=== PATIENT | male | born 1955 | race Caucasian/White ===

== ENCOUNTER → 2017-07-04 | Outpatient (CLI) | payer OTHER ==
--- NOTE | 2017-07-04 17:24 | PCVCIMAG ---
APPROVED REPORT Exam: Stress Echocardiogram Indication: CAD , Dyspnea , Hypertension Patient Location: Echo lab Stress Nurse: Roro Bowden RN Status: routine Ht: 5 ft 10 in HR: 109 bpm BP: 134/82 mmHg Rhythm: Sinus Tachycardia Procedure The patient underwent an Exercise Stress Test using the Que Protocol. Blood pressure, heart rate, and EKG were monitored. An Echocardiogram was performed by building maintenance technician in four stages in quad fashion. At peak stress, four selected images were obtained and placed side by side with resting images for comparison. Stress Test Details Stress Test: Exercise stress testing was performed using a Que protocol. HR Resting HR: 109 bpmMax Heart Rate (APMHR): 158 bpm Max HR Achieved: 169 bpmTarget HR (85% APMHR): 134 bpm % of APMHR: 106 Recovery HR: 126 bpm HR response to stress: Normal HR response to stress BP Resting BP: 134/82 mmHg Max BP: 206/94 mmHg Recovery BP: 186/88 mmHg ECG Resting ECG: Sinus Rhythm Stress ECG: Sinus Rhythm ST Change: Non-diagnostic ST changes Arrhythmia: Isolated PVCs Recovery ECG: Sinus Rhythm Recovery ST Change: Non-diagnostic ST changes Recovery Arrhythmia: Isolated PVCs Clinical Reason for Termination: Maximal effort Stress Symptoms: Dyspnea Exercise duration: 7 min 30 sec Highest Stage Achieved: Stage 3: 3.4 mph at 14% grade. Exercise capacity: 10.1 METs Overall Exercise Capacity for Age: Normal Pre-Stress Echo The resting Echocardiogram showed normal left ventricular contractility with an estimated Ejection Fraction of about >55%. Normal wall motion in all segments on baseline images. Post-Stress Echo The stress Echocardiogram showed normal left ventricular contractility with an estimated Ejection Fraction of about 65%. Normal augmentation of wall motion in all segments on post stress images. Clinical No clinical and non-diagnostic ECG evidence for ischemia. Conclusion Clinical Response: Non-ischemic Exercise Capacity: Average Stress ECG Response: Equivocal Stress Echo Images: Non-ischemic The left ventricle is normal in size and wall thickness in both the rest and stress images. Other Information Study Quality: Adequate <Conclusion> The left ventricle is normal in size and wall thickness in both the rest and stress images.
== END | disposition home or self-care (01) ==
LOC: PCVCIMAG 15:39
PROVIDERS: ATTEND Internal Medicine Cardiovascular Disease
DX: I49.3 Ventricular premature depolarization (principal); I25.10 Atherosclerotic heart disease of native coronary artery without angina pectoris; I10 Essential (primary) hypertension; E78.5 Hyperlipidemia, unspecified; R00.0 Tachycardia, unspecified; J45.909 Unspecified asthma, uncomplicated; K21.9 Gastro-esophageal reflux disease without esophagitis; Z90.49 Acquired absence of other specified parts of digestive tract; Z79.82 Long term (current) use of aspirin
CPT/HCPCS: 93325; 93351

== ENCOUNTER → 2019-07-12 | Outpatient (CLI) | payer SELFPAY ==
--- NOTE | 2019-07-12 17:17 | PCVCIMAG ---
APPROVED REPORT Study performed: 07/12/2019 14:55:28 Exam: Stress Echocardiogram Indication: CAD, Cor Ca+ >2000 Patient Location: Echo lab Stress Nurse: Roro Bowden RN Room #: 2 Status: routine Ht: 5 ft 10 in HR: 92 bpm BP: 142/84 mmHg Rhythm: NSR Medical History Medical History: HTN, Hyperlipidemia, CAD non obstructive Cardiac Risk Factors: HTN, Hyperlipidemia, FHX of CAD Previous Cardiac Procedures: Cath only Pretest Chest Pain Characteristics: No chest pain Exercise History: Physically active Procedure The patient underwent an Exercise Stress Test using the Que Protocol. Blood pressure, heart rate, and EKG were monitored. An Echocardiogram was performed by voice intercept technician in four stages in quad fashion. At peak stress, four selected images were obtained and placed side by side with resting images for comparison. Stress Test Details Stress Test: Exercise stress testing was performed using a Que protocol. HR Resting HR: 92 bpmMax Heart Rate (APMHR): 156 bpm Max HR Achieved: 171 bpmTarget HR (85% APMHR): 132 bpm % of APMHR: 109 Recovery HR: 125 bpm HR response to stress: Normal HR response to stress BP Resting BP: 142/84 mmHg Max BP: 164/80 mmHg Recovery BP: 140/80 mmHg BP response to stress: Normal blood pressure response to stress. ECG Resting ECG: Sinus Rhythm, normal EKG Stress ECG: Sinus Rhythm, nonspecific ST-T abnormalities ST Change: Non-ischemic Maximum ST Deviation: -1.8 mm Arrhythmia: PVCs Recovery ECG: Sinus Rhythm, nonspecific ST-T abnormalities Recovery ST Change: Non-ischemic Recovery ST Deviation: -1.6 mm Recovery Arrhythmia: Occ PVCs Clinical Reason for Termination: Maximal effort Stress Symptoms: none Exercise duration: 10 min 04 sec Highest Stage Achieved: Stage 4: 4.2 mph at 16% grade. Exercise capacity: 13.4 METs Overall Exercise Capacity for Age: Good Scale: Active Angina Score: None No complications. Stress ECG Conclusion Bernard Treadmill Score is 19.0 which is Low risk. Pre-Stress Echo The resting Echocardiogram showed normal left ventricular contractility with an estimated Ejection Fraction of about 55-60%. Normal wall motion in all segments on baseline images. Post-Stress Echo The stress Echocardiogram showed normal left ventricular contractility with an estimated Ejection Fraction of about 65-70%. Normal augmentation of wall motion in all segments on post stress images. Clinical No clinical or ECG evidence for ischemia. Conclusion Clinical Response: Non-ischemic Exercise Capacity: Superior Stress ECG Response: Non-ischemic Stress Echo Images: Non-ischemic No clinical, EKG or echocardiographic evidence for ischemia. No echocardiographic evidence for exercise induced ischemia. Normal stress echocardiogram with maximal exercise stress. Normal color doppler. No regurgitation or stenosis present on pulmonic, mitral, and aortic valves. Trace tricuspid regurgitation. <Conclusion> No clinical, EKG or echocardiographic evidence for ischemia. No echocardiographic evidence for exercise induced ischemia. Normal stress echocardiogram with maximal exercise stress. Normal color doppler. No regurgitation or stenosis present on pulmonic, mitral, and aortic valves. Trace tricuspid regurgitation.
== END | disposition home or self-care (01) ==
LOC: PCVCIMAG 13:37
PROVIDERS: ATTEND Internal Medicine Cardiovascular Disease
DX: I25.10 Atherosclerotic heart disease of native coronary artery without angina pectoris (principal); E78.5 Hyperlipidemia, unspecified; I10 Essential (primary) hypertension
CPT/HCPCS: 93325; 93351